=== PATIENT | male | born 1965 | race Caucasian/White ===

== ENCOUNTER → 2017-07-16 | Outpatient (CLI) | payer BC, OTHER | LOC: HYPER 12:05 → EDSEX 13:10 → HYPER 14:55 | DX: L97.522 Non-pressure chronic ulcer of other part of left foot with fat layer exposed (principal); M77.42 Metatarsalgia, left foot; I63.9 Cerebral infarction, unspecified; R53.81 Other malaise; G81.94 Hemiplegia, unspecified affecting left nondominant side; Z86.73 Personal history of transient ischemic attack (TIA), and cerebral infarction without residual deficits; K21.9 Gastro-esophageal reflux disease without esophagitis; I10 Essential (primary) hypertension; Z72.89 Other problems related to lifestyle ==

== ENCOUNTER → 2017-07-28 | Outpatient (CLI) | payer BC, OTHER | LOC: EDSEX 07:12 → HYPER 07:12 | DX: L97.522 Non-pressure chronic ulcer of other part of left foot with fat layer exposed (principal); I10 Essential (primary) hypertension; G81.94 Hemiplegia, unspecified affecting left nondominant side; M24.542 Contracture, left hand; M77.42 Metatarsalgia, left foot; R53.81 Other malaise; Z86.73 Personal history of transient ischemic attack (TIA), and cerebral infarction without residual deficits; Z72.89 Other problems related to lifestyle ==

== ENCOUNTER → 2017-08-04 | Outpatient (CLI) | payer BC, OTHER | LOC: EDSEX 06:51 → HYPER 06:51 | DX: L97.522 Non-pressure chronic ulcer of other part of left foot with fat layer exposed (principal); I10 Essential (primary) hypertension; G81.94 Hemiplegia, unspecified affecting left nondominant side; M24.542 Contracture, left hand; M77.42 Metatarsalgia, left foot; Z86.73 Personal history of transient ischemic attack (TIA), and cerebral infarction without residual deficits; R53.81 Other malaise; K21.9 Gastro-esophageal reflux disease without esophagitis; Z72.89 Other problems related to lifestyle ==

== ENCOUNTER → 2017-08-20 | Outpatient (CLI) | payer BC, OTHER | LOC: EDSEX 07:20 → HYPER 07:20 | DX: L97.522 Non-pressure chronic ulcer of other part of left foot with fat layer exposed (principal); I10 Essential (primary) hypertension; G81.94 Hemiplegia, unspecified affecting left nondominant side; M24.542 Contracture, left hand; M77.42 Metatarsalgia, left foot; R53.81 Other malaise; Z86.73 Personal history of transient ischemic attack (TIA), and cerebral infarction without residual deficits; K21.9 Gastro-esophageal reflux disease without esophagitis ==

== ENCOUNTER → 2017-09-03 | Outpatient (CLI) | payer BC, OTHER | LOC: HYPER 06:52 | DX: L97.522 Non-pressure chronic ulcer of other part of left foot with fat layer exposed (principal); S90.822D Blister (nonthermal), left foot, subsequent encounter; I10 Essential (primary) hypertension; L84 Corns and callosities; E78.1 Pure hyperglyceridemia; I63.9 Cerebral infarction, unspecified; K21.9 Gastro-esophageal reflux disease without esophagitis; M24.542 Contracture, left hand; M77.42 Metatarsalgia, left foot; G81.94 Hemiplegia, unspecified affecting left nondominant side; Z86.73 Personal history of transient ischemic attack (TIA), and cerebral infarction without residual deficits; X58.XXXD Exposure to other specified factors, subsequent encounter ==

== ENCOUNTER → 2017-10-29 | Outpatient (CLI) | payer BC, OTHER | LOC: HYPER 06:50 | DX: L97.522 Non-pressure chronic ulcer of other part of left foot with fat layer exposed (principal); L02.511 Cutaneous abscess of right hand; I10 Essential (primary) hypertension; M24.542 Contracture, left hand; R53.81 Other malaise; M77.42 Metatarsalgia, left foot; L84 Corns and callosities; I63.9 Cerebral infarction, unspecified; G81.94 Hemiplegia, unspecified affecting left nondominant side; K21.9 Gastro-esophageal reflux disease without esophagitis ==

== ENCOUNTER → 2018-03-11 | Outpatient (CLI) | payer BC, OTHER | LOC: HYPER 06:31 | DX: L89.899 Pressure ulcer of other site, unspecified stage (principal); L84 Corns and callosities; I63.9 Cerebral infarction, unspecified; E78.00 Pure hypercholesterolemia, unspecified; I10 Essential (primary) hypertension; G81.94 Hemiplegia, unspecified affecting left nondominant side; G83.9 Paralytic syndrome, unspecified; M77.42 Metatarsalgia, left foot; M24.542 Contracture, left hand; K21.9 Gastro-esophageal reflux disease without esophagitis; Z86.73 Personal history of transient ischemic attack (TIA), and cerebral infarction without residual deficits ==

== ENCOUNTER → 2018-04-01 | Outpatient (CLI) | payer BC, OTHER | LOC: HYPER 07:04 | DX: L89.899 Pressure ulcer of other site, unspecified stage (principal); L84 Corns and callosities; I63.9 Cerebral infarction, unspecified; I10 Essential (primary) hypertension; E78.1 Pure hyperglyceridemia; G81.94 Hemiplegia, unspecified affecting left nondominant side; K21.9 Gastro-esophageal reflux disease without esophagitis; M24.542 Contracture, left hand; Z86.73 Personal history of transient ischemic attack (TIA), and cerebral infarction without residual deficits ==

== ENCOUNTER → 2019-10-31 | Outpatient (CLI) | payer BC, OTHER | LOC: HYPER 13:18 | PROVIDERS: ATTEND Emergency Medicine | DX: R21 Rash and other nonspecific skin eruption (principal); R60.0 Localized edema; L25.9 Unspecified contact dermatitis, unspecified cause; I63.9 Cerebral infarction, unspecified; I10 Essential (primary) hypertension; B95.7 Other staphylococcus as the cause of diseases classified elsewhere; E78.1 Pure hyperglyceridemia; G81.94 Hemiplegia, unspecified affecting left nondominant side; M24.542 Contracture, left hand; K21.9 Gastro-esophageal reflux disease without esophagitis; Z79.82 Long term (current) use of aspirin ==

== ENCOUNTER → 2019-11-15 | Outpatient (CLI) | payer BC, OTHER | LOC: HYPER 09:44 | PROVIDERS: ATTEND Emergency Medicine | DX: R21 Rash and other nonspecific skin eruption (principal); R60.0 Localized edema; L25.9 Unspecified contact dermatitis, unspecified cause; B95.7 Other staphylococcus as the cause of diseases classified elsewhere; E78.1 Pure hyperglyceridemia; G81.94 Hemiplegia, unspecified affecting left nondominant side; G62.9 Polyneuropathy, unspecified; I63.9 Cerebral infarction, unspecified; I10 Essential (primary) hypertension; R25.2 Cramp and spasm; K21.9 Gastro-esophageal reflux disease without esophagitis; M24.542 Contracture, left hand ==

== ENCOUNTER → 2019-12-20 | Outpatient (CLI) | payer BC, OTHER | LOC: HYPER 10:57 | PROVIDERS: ATTEND Emergency Medicine | DX: R21 Rash and other nonspecific skin eruption (principal); L25.9 Unspecified contact dermatitis, unspecified cause; B95.7 Other staphylococcus as the cause of diseases classified elsewhere; E78.1 Pure hyperglyceridemia; G62.9 Polyneuropathy, unspecified; G81.94 Hemiplegia, unspecified affecting left nondominant side; I63.9 Cerebral infarction, unspecified; I10 Essential (primary) hypertension; R60.0 Localized edema; R25.2 Cramp and spasm; K21.9 Gastro-esophageal reflux disease without esophagitis; M24.542 Contracture, left hand; Z86.73 Personal history of transient ischemic attack (TIA), and cerebral infarction without residual deficits ==

== ENCOUNTER → 2020-05-30 | Outpatient (CLI) | payer BC, OTHER | LOC: HYPER 11:48 | PROVIDERS: ATTEND Emergency Medicine | DX: R21 Rash and other nonspecific skin eruption (principal); L25.9 Unspecified contact dermatitis, unspecified cause; B95.7 Other staphylococcus as the cause of diseases classified elsewhere; E78.1 Pure hyperglyceridemia; G62.9 Polyneuropathy, unspecified; G81.94 Hemiplegia, unspecified affecting left nondominant side; I63.9 Cerebral infarction, unspecified; I10 Essential (primary) hypertension; R60.0 Localized edema; R25.2 Cramp and spasm; K21.9 Gastro-esophageal reflux disease without esophagitis; M24.542 Contracture, left hand ==

== ENCOUNTER → 2020-08-01 | Outpatient (CLI) | payer BC, OTHER | LOC: HYPER 14:59 | PROVIDERS: ATTEND Emergency Medicine | DX: R21 Rash and other nonspecific skin eruption (principal); L25.9 Unspecified contact dermatitis, unspecified cause; B95.7 Other staphylococcus as the cause of diseases classified elsewhere; E78.1 Pure hyperglyceridemia; G62.9 Polyneuropathy, unspecified; G81.94 Hemiplegia, unspecified affecting left nondominant side; I63.9 Cerebral infarction, unspecified; I10 Essential (primary) hypertension; R60.0 Localized edema; R25.2 Cramp and spasm; K21.9 Gastro-esophageal reflux disease without esophagitis; M24.542 Contracture, left hand ==

== ENCOUNTER → 2020-11-01 | Outpatient (CLI) | payer BC, OTHER | LOC: HYPER 09:55 | PROVIDERS: ATTEND Emergency Medicine Emergency Medical Services | DX: R21 Rash and other nonspecific skin eruption (principal); L25.9 Unspecified contact dermatitis, unspecified cause; B95.7 Other staphylococcus as the cause of diseases classified elsewhere; E78.1 Pure hyperglyceridemia; G62.9 Polyneuropathy, unspecified; G81.94 Hemiplegia, unspecified affecting left nondominant side; I63.9 Cerebral infarction, unspecified; I10 Essential (primary) hypertension; R60.0 Localized edema; R25.2 Cramp and spasm; K21.9 Gastro-esophageal reflux disease without esophagitis; M24.542 Contracture, left hand ==